=== PATIENT | female | born 1955 | race Caucasian/White ===

== ENCOUNTER 2019-01-03 13:57 | Emergency (ER) | payer OTHER ==
[~2019-01-03] VITALS: Ht 160 cm; Wt 52.2 kg
--- NOTE | 2019-01-03 14:15 | NUR ---
[id number]. PATIENT BIB FRIEND TO ER W/ COMPLAINT OF LEFT FOOT PAIN. PATIENT HAD FELL AT HOME ON AN UNEVEN SURFACE WHILE FIXING CURTAIN. PATIENT IS STABLE. PATIENT IS TO BE SEEN BY MD. PATIENT GIVEN WARM BLANKET FOR COMFORT. WILL AWAIT ON MD FOR ORDERS.
[2019-01-03] MEDS ORDERED: TRAMADOL HCL 50 MG TABLET PO ONE (14:30)
[2019-01-03] MEDS ORDERED: ONDANSETRON 4 MG TAB.RAPDIS ONE (14:30)
[2019-01-03] MEDS ORDERED: ONDANSETRON 4 MG TAB.RAPDIS PO ONE (14:30)
[2019-01-03] MEDS ORDERED: TRAMADOL HCL 50 MG TABLET ONE (14:30)
--- NOTE | 2019-01-03 14:53 | NUR ---
RADIOLOGY AT BEDSIDE TAKING XRAY FOR PATIENT.
--- NOTE | 2019-01-03 15:35 | NUR ---
Patient discharged to home in stable condition. Written and verbal after care instructions given. Patient verbalizes understanding of instruction.
[2019-01-03 16:15] VITALS: BP 118/82
== END 2019-01-03 15:40 | disposition home or self-care (01) ==
LOC: ER 14:03
DX: S93.692A Other sprain of left foot, initial encounter (principal); I10 Essential (primary) hypertension; Z60.2 Problems related to living alone; W01.0XXA Fall on same level from slipping, tripping and stumbling without subsequent striking against object, initial encounter; Y93.01 Activity, walking, marching and hiking; Y92.89 Other specified places as the place of occurrence of the external cause; Y99.8 Other external cause status
CPT/HCPCS: 73630; 99283; Q0162